=== PATIENT | male | born 1955 | race Caucasian/White ===

== ENCOUNTER 2016-07-17 01:01 | Emergency (ER) | payer OTHER ==
[2017-01-26] MEDS ORDERED: ASPIRIN CHEWABL81 MG PO (07:56)
[2017-01-26] MEDS ORDERED: CETIRIZINE HCL10 M1 PO (07:56)
[2017-01-26] MEDS ORDERED: GLYBURIDE-METF1 EACH PO (07:58)
[2017-01-26] MEDS ORDERED: FLONASE ALLER15.8 ML (07:58)
[2017-01-26] MEDS ORDERED: RANITIDINE HCL300 M1 PO (07:59)
[2017-01-26] MEDS ORDERED: NORVASC 5 MG TAB5 MG PO (08:00)
[2017-01-26] MEDS ORDERED: COREG 25MG TAB25 MG PO (08:00)
[2017-01-26] MEDS ORDERED: HYDROCHLOROTH12.5 MG PO (08:01)
[2017-01-26] MEDS ORDERED: HYDRALAZINE HCL50 MG PO (08:01)
[2017-01-26] MEDS ORDERED: CIALIS20 MG PO (08:02)
[2017-01-26] MEDS ORDERED: LOSARTAN POTAS100 MG PO (08:02)
[2017-01-26] MEDS ORDERED: COLACE 100MG C100 MG PO (08:03)
[2017-01-26] MEDS ORDERED: LIPITOR TAB 2020 MG PO (08:05)
== END 2016-07-17 03:12 | disposition home or self-care (01) ==
LOC: ER1 01:01
DX: N40.1 Benign prostatic hyperplasia with lower urinary tract symptoms (principal); R33.8 Other retention of urine; E11.9 Type 2 diabetes mellitus without complications
CPT/HCPCS: 51702; 81001; 99283

== ENCOUNTER → 2021-03-31 | Outpatient (CLI) | payer MEDICARE, OTHER ==
[~2021-03-31] MED LIST: ASPIRIN CHEWABL81 MG PO; ATORVASTATIN CA40 MG PO; CETIRIZINE HCL10 M1 PO; CIALIS20 MG PO; COLACE 100MG C100 MG PO; COREG 25MG TAB25 MG PO; ELIQUIS 5 MG TAB5 MG PO; FERROUS GLUCON324 M2 PO; FLONASE ALLER15.8 ML; GLIPIZIDE ER5 MG PO; GLYBURIDE-METF1 EACH PO; HYDRALAZINE HCL50 MG PO; HYDROCHLOROTH12.5 MG PO; LASIX TAB 20 MG20 MG PO; LIPITOR TAB 2020 MG PO; LOSARTAN POTAS100 MG PO; METFORMIN ER1000 MG PO; NORVASC 5 MG TAB5 MG PO; NORVASC5 MG PO; PACERONE200 MG PO; PROTONIX20 MG PO; RANITIDINE HCL300 M1 PO; TRADJENTA5 MG PO; VITAMIN D31000 UNIT PO
== END ==
LOC: HEART 5 10:50
DX: R06.02 Shortness of breath (principal); Z79.899 Other long term (current) drug therapy
CPT/HCPCS: 94010; 94729

== ENCOUNTER → 2022-01-14 | Day surgery (SDC) | payer MEDICARE ==
[~2022-01-14] MED LIST changes: +MAGNESIUM-VIT1 EAC1 PO
== END | disposition home or self-care (01) ==
LOC: OR 06:28
DX: R19.7 Diarrhea, unspecified (principal); D12.5 Benign neoplasm of sigmoid colon; K51.40 Inflammatory polyps of colon without complications; D12.3 Benign neoplasm of transverse colon; D50.9 Iron deficiency anemia, unspecified; I48.0 Paroxysmal atrial fibrillation; I13.0 Hypertensive heart and chronic kidney disease with heart failure and stage 1 through stage 4 chronic kidney disease, or unspecified chronic kidney disease; E10.22 Type 1 diabetes mellitus with diabetic chronic kidney disease; N18.30 Chronic kidney disease, stage 3 unspecified; I50.22 Chronic systolic (congestive) heart failure; E10.42 Type 1 diabetes mellitus with diabetic polyneuropathy; K21.9 Gastro-esophageal reflux disease without esophagitis; E78.00 Pure hypercholesterolemia, unspecified; Z79.01 Long term (current) use of anticoagulants
CPT/HCPCS: 82962; J2704

== ENCOUNTER 2022-01-18 08:33 | Emergency (ER) | payer MEDICARE ==
[2022-01-18 09:19] LABS: HEMOGLOBIN 9.9 gm/dl (14.0-17.5); RED BLOOD COUNT 3.35 M/UL (4.20-5.50)
== END 2022-01-18 12:37 | disposition home or self-care (01) ==
LOC: ER1 08:33
PROVIDERS: Emergency Medicine
DX: K91.840 Postprocedural hemorrhage of a digestive system organ or structure following a digestive system procedure (principal); D64.9 Anemia, unspecified; I25.10 Atherosclerotic heart disease of native coronary artery without angina pectoris; I11.0 Hypertensive heart disease with heart failure; I50.9 Heart failure, unspecified; E11.9 Type 2 diabetes mellitus without complications
CPT/HCPCS: 80053; 82550; 82553; 83690; 84484; 85025; 85610; 85730; 86850; 86900; 86901; 96360; 99284; Q9967